=== PATIENT | female | born 1980 | race Two or more races ===

== ENCOUNTER 2023-03-31 12:24 | Emergency (ER) | payer OTHER ==
[~2023-03-31] VITALS: Ht 162.6 cm; Wt 90.0 kg
[2023-03-31 12:47] LABS: Hematocrit 40.4 % (36.0-46.0); Hemoglobin 13.6 g/dL (12.2-16.2); Mean Corpuscular Hemoglobin 28.5 pg (28.0-32.0); Mean Corpuscular Hgb Conc. 33.5 g/dL (32.0-36.0); Mean Corpuscular Volume 84.9 fL (80.0-100.0); Red Blood Cells 4.76 10^6/uL (4.0-5.20); Red Cell Distribution Width 12.3 % (11.8-14.3); White Blood Cell 8.6 10^3/uL (4.4-10.8)
[2023-03-31 12:53] LABS: Basophils % (manual) 0 (0.0-2.0); Blast Cells 0; Metamyelocytes % 0; Myelocytes % 0; Promyelocytes % 0; Reactive Lymphocytes 0
[2023-03-31 13:04] LABS: INR 0.97 (0.9-1.15); Partial Thromboplastin Time 28.2 sec (24.6-33.4)
[2023-03-31 13:08] LABS: Albumin 3.3 g/dL (3.4-5.0); Calcium 8.8 mg/dL (8.5-10.1); Potassium 4.1 mmol/L (3.5-5.1)
[2023-03-31 13:13] LABS: BUN/Creatinine Ratio 37.2 (10.0-20.0); Bilirubin, Total 0.4 mg/dL (0.2-1.0); Total Protein 6.5 g/dL (6.4-8.2)
[2023-03-31 13:45] LABS: Band Neutrophils % (manual) 2; Eosinophils % (manual) 4 (0-7); Lymphocytes % (manual) 31 (10.0-50.0); Monocytes % (manual) 15 (0-12)
[2023-03-31 13:59] VITALS: BP 103/45
[2023-03-31 14:36] LABS: Urine Bacteria FEW /hpf (None Seen); Urine Blood Negative /uL (Negative); Urine Mucus FEW (None Seen); Urine Specific Gravity 1.024 (1.001-1.035); Urine WBC 2 /hpf (0 - 5)
== END 2023-03-31 15:35 | disposition home or self-care (01) ==
LOC: ER 12:24
DX: R00.2 Palpitations (principal); R42 Dizziness and giddiness; F41.9 Anxiety disorder, unspecified; Z90.49 Acquired absence of other specified parts of digestive tract; Z98.51 Tubal ligation status; Z79.01 Long term (current) use of anticoagulants
CPT/HCPCS: 36415; 71046; 80053; 81001; 84484; 85007; 85027; 85610; 85730; 93005